=== PATIENT | female | born 1980 | race Caucasian/White ===

== ENCOUNTER → 2017-05-28 | Outpatient (CLI) | payer BC | LOC: BMCIMAGING 09:57 | PROVIDERS: ATTEND Family Medicine | DX: M79.662 Pain in left lower leg (principal) ==

== ENCOUNTER 2018-10-12 13:16 | Emergency (ER) | payer BC ==
--- NOTE | 2018-10-12 13:44 | EDPHY ---
H & P Time Seen by Provider: 10/12/18 13:43 HPI/ROS: Chief complaint. Head injury HPI. 38-year-old female was skiing 3 days ago and caught her edge fell hit her head. She was dazed but did not lose consciousness. She was skiing with no helmet. She has continued headache. Today she has increasing left-sided headache pressure. She does have a history of concussion. She has neck pain and back pain. Her vision is okay. Otherwise no chest pain or shortness of breath. No abdominal pain. Bruises to arms and legs but nothing that makes her think she has broken a bone. ROS 10 systems were reviewed and negative with the exception of the elements mentioned in the history of present illness Past Medical/Surgical History: Hyper parathyroid, , appendectomy, rib resection, dizziness, bipolar, depression, 5 previous concussions Social History: Single, nonsmoker, no alcohol Smoking Status: Never smoked Physical Exam: General Appearance: Alert pleasant well-developed female mild distress. Vital signs are stable Eyes: Pupils equal and round no pallor or injection. ENT, no hemotympanum or Murray sign. Tenderness to the left temporal and occipital area with slight bump in the occipital area. Mild left mid tongue bite. No dental trauma. Slight bruising under the left eye Respiratory: There are no retractions, lungs are clear to auscultation. Cardiovascular: Regular rate and rhythm. Gastrointestinal: Abdomen is soft and nontender, no masses, bowel sounds normal. Neurological: Awake and alert, sensory and motor exams grossly normal. Skin: Warm and dry, no rashes. Musculoskeletal: Patient has right-sided neck tenderness. No tenderness over the cervical spine. She has right-sided thoracic tenderness to palpation. No tenderness over T, L, S spine. Extremities symmetrical, full range of motion. Psychiatric: Patient is oriented X 3, there is no agitation. Constitutional: Initial Vital Signs Temperature (C) 36.8 C 10/12/18 13:19 Heart Rate 91 10/12/18 13:19 Respiratory Rate 18 10/12/18 13:19 Blood Pressure 141/74 H 10/12/18 13:19 O2 Sat (%) 99 10/12/18 13:19 O2 Delivery Mode Room Air Allergies/Adverse Reactions: No Known Allergies Allergy (Verified 12/21/14 15:04) Home Medications: Medication Instructions Recorded lamoTRIgine [LaMICtal] 10/12/18 Medical Decision Making - Diagnostics Imaging Results: Noncontrast head CT reviewed by me and discussed with Radiology is normal. No fracture or intracranial bleeding Procedures: Ibuprofen ED Course/Re-evaluation: Re-evaluation at 3:25 p.m.. Patient is stable. Patient and I discussed imaging study results, treatment plan including criteria for return importance of follow-up and further evaluation. She expresses understanding and agreement. Head injury precautions are given. Differential Diagnosis: I considered concussion, skull fracture, intracranial bleeding - Data Points Medications Given: Discontinued Medications Ibuprofen (Motrin) 600 mg PO EDNOW ONE Stop: 10/12/18 14:15 Last Admin: 10/12/18 14:18 Dose: 600 mg Departure - Departure Disposition: Home, Routine, Self-Care Clinical Impression: Concussion Qualifiers: Encounter type: initial encounter Loss of consciousness presence/duration: without LOC Qualified Code(s): S06.0X0A - Concussion without loss of consciousness, initial encounter Condition: Good Instructions: Concussion (ED) Additional Instructions: Ibuprofen 600 mg every 6 hr, Tylenol 1000 mg every 4-6 hours as needed for headache No activity that may result in head injury for 1 week Return for worsening symptoms Recheck in 3-4 days if not improving Referrals: Malathi Grissom MD [Primary Care Provider] - 3-4 days, if not improved
[2018-10-12] MEDS ORDERED: IBUPROFEN 600 MG TAB PO ONE (14:14)
[2018-10-12 15:45] VITALS: BP 118/66
== END 2018-10-12 15:43 | disposition home or self-care (01) ==
DX: S06.0X0A Concussion without loss of consciousness, initial encounter (principal); V00.321A Fall from snow-skis, initial encounter; Y93.23 Activity, snow (alpine) (downhill) skiing, snowboarding, sledding, tobogganing and snow tubing; Y92.828 Other wilderness area as the place of occurrence of the external cause

== ENCOUNTER → 2018-11-18 | Outpatient (CLI) | payer BC | LOC: FIMAGING 08:41 | PROVIDERS: ATTEND Family Medicine | DX: N60.01 Solitary cyst of right breast (principal) ==